=== PATIENT | male | born 1955 | race Caucasian/White ===

== ENCOUNTER → 2020-09-18 13:26 | Outpatient (REF) | payer BC, SELFPAY | LOC: ANHLAB 13:26 | PROVIDERS: PCP Internal Medicine; Visit Provider Nurse Practitioner | DX: C44.91 Basal cell carcinoma of skin, unspecified (principal) | CPT/HCPCS: 88305 ==

== ENCOUNTER → 2020-10-28 08:52 | Outpatient (REF) | payer BC, SELFPAY | LOC: ANHLAB 08:52 | PROVIDERS: PCP Internal Medicine; Visit Provider Nurse Practitioner | DX: D22.61 Melanocytic nevi of right upper limb, including shoulder (principal) | CPT/HCPCS: 88305 ==

== ENCOUNTER → 2020-11-17 07:48 | Outpatient (REF) | payer BC, SELFPAY | LOC: ANHLAB 07:48 | PROVIDERS: PCP Internal Medicine; Visit Provider Nurse Practitioner | DX: C44.319 Basal cell carcinoma of skin of other parts of face (principal) | CPT/HCPCS: 88305; 88331 ==